=== PATIENT | female | born 1955 | race Caucasian/White ===

== ENCOUNTER → 2023-03-16 | Outpatient (CLI) | payer MEDICARE | END | disposition home or self-care (01) | LOC: RESCLI 12:31 | PROVIDERS: ATTEND Student in an Organized Health Care Education/Training Program | DX: K74.3 Primary biliary cirrhosis (principal); I10 Essential (primary) hypertension; E78.5 Hyperlipidemia, unspecified; J45.909 Unspecified asthma, uncomplicated; J32.9 Chronic sinusitis, unspecified; M85.80 Other specified disorders of bone density and structure, unspecified site; J45.20 Mild intermittent asthma, uncomplicated; E63.9 Nutritional deficiency, unspecified; G25.81 Restless legs syndrome; Z82.49 Family history of ischemic heart disease and other diseases of the circulatory system; Z79.899 Other long term (current) drug therapy; Z88.8 Allergy status to other drugs, medicaments and biological substances ==